=== PATIENT | female | born 1950 | race Caucasian/White ===

== ENCOUNTER 2023-08-22 18:00 | Inpatient (IN) | payer OTHER ==
[2023-08-22] MEDS ORDERED: tiZANidine HCl 4 MG TAB PO PRN (20:50)
[2023-08-22] MEDS ORDERED: Nitroglycerin 0.4 MG TAB (25 Tab Bottle) SL PRN (20:50)
[2023-08-22] MEDS ORDERED: traMADol HCl 50 MG TAB PO PRN (20:50)
[2023-08-22] MEDS: Metoprolol Tartrate 25 MG TAB PO SCH (21:24)
[2023-08-22] MEDS: guaiFENesin ER 600 MG TAB PO PRN (21:25)
[2023-08-22] MEDS ORDERED: PARoxetine 20 MG TAB PO SCH (21:30)
[2023-08-22 22:19] VITALS: BMI 27.2
[2023-08-23 05:05] LABS: #Eosinphils 0.1 thou/uL (0.0-0.7); #Monocytes 0.7 thou/uL (0.11-0.59); #Neutrophils 5.6 thou/uL (1.40-6.50); %Basophils 0.5 % (0.0-1.0); %Eosinophils 1.7 % (0.0-10.0); %Lymphocytes 23.3 % (21.0-51.0); %Monocytes 7.8 % (0.0-10.0); %Neutrophils 66.7 % (42.0-75.0); Hematocrit 40.9 % (36.0-47.0); Mean Corpuscular HGB CONC 34.2 g/dL (32.0-36.0); Mean Corpuscular Hemoglobin 33.4 pg (27.0-31.0); Mean Corpuscular Volume 97.6 fl (78.0-98.0); Mean Platelet Volume 6.5 fL (7.4-10.4); Platelet Count 191 10x3/uL (130-400); RBC Distribution Width 10.9 % (11.5-14.5); Red Blood Cell (RBC) Count 4.19 mill/uL (4.20-5.40); White Blood Cell (WBC) Count 8.3 10x3/uL (4.8-10.8)
[2023-08-23 05:28] LABS: Anion Gap 13 mmol/L (10-20); BUN (Urea Nitrogen) 16 mg/dL (9.8-20.1); Calc. Creatinine Clearance 46 mL/min (70-130); Calcium 10.3 mg/dL (7.8-10.44); Carbon Dioxide 23 mmol/L (23-31); Chloride 106 mmol/L (98-107); Estimated GFR 55; Glucose 89 mg/dL (83-110); Potassium 3.6 mmol/L (3.5-5.1); Sodium 138 mmol/L (136-145)
[2023-08-23] MEDS: Isosorbide Mononitrate 30 MG ER.TAB PO SCH (08:35)
[2023-08-23] MEDS: Topiramate 25 MG TAB PO SCH (08:35)
[2023-08-23] MEDS: BuPROPion XL 150 MG ER.TAB PO SCH (08:35)
[2023-08-23] MEDS: Ezetimibe 10 MG TAB PO SCH (08:35)
[2023-08-23] MEDS: Zinc Sulfate 220 MG CAP PO SCH (08:35)
[2023-08-23] MEDS: Ranolazine 500 MG ER.TAB PO SCH (08:35)
[2023-08-23] MEDS: Multivit, Therapeutic 1 TAB PO SCH (08:35)
[2023-08-23] MEDS: Metoprolol Tartrate 25 MG TAB PO SCH ×2 (08:36→20:47)
[2023-08-23] MEDS: Aspirin 81 mg Enteric Coated Tablet PO SCH (08:37)
[2023-08-23] MEDS: Acetaminophen 325 MG TAB PO PRN ×2 (09:16→20:50)
[2023-08-23 13:56] LABS: Free T4 (Free Thyroxine) 1.09 ng/dL (0.70-1.48)
[2023-08-23] MEDS: PARoxetine 20 MG TAB PO SCH (20:49)
[2023-08-24] MEDS: Ranolazine 500 MG ER.TAB PO SCH (09:54)
[2023-08-24] MEDS: Metoprolol Tartrate 25 MG TAB PO SCH ×2 (09:54→21:06)
[2023-08-24] MEDS: Ezetimibe 10 MG TAB PO SCH (09:54)
[2023-08-24] MEDS: Topiramate 25 MG TAB PO SCH (09:54)
[2023-08-24] MEDS: guaiFENesin ER 600 MG TAB PO PRN (09:54)
[2023-08-24] MEDS: Multivit, Therapeutic 1 TAB PO SCH (09:54)
[2023-08-24] MEDS: Isosorbide Mononitrate 30 MG ER.TAB PO SCH (09:54)
[2023-08-24] MEDS: Zinc Sulfate 220 MG CAP PO SCH (09:54)
[2023-08-24] MEDS: Aspirin 81 mg Enteric Coated Tablet PO SCH (09:55)
[2023-08-24] MEDS: BuPROPion XL 150 MG ER.TAB PO SCH (09:56)
[2023-08-24] MEDS: PARoxetine 20 MG TAB PO SCH (21:06)
[2023-08-25] MEDS: Ranolazine 500 MG ER.TAB PO SCH (09:51)
[2023-08-25] MEDS: Multivit, Therapeutic 1 TAB PO SCH (09:52)
[2023-08-25] MEDS: Metoprolol Tartrate 25 MG TAB PO SCH ×2 (09:52→20:42)
[2023-08-25] MEDS: BuPROPion XL 150 MG ER.TAB PO SCH (09:52)
[2023-08-25] MEDS: Zinc Sulfate 220 MG CAP PO SCH (09:52)
[2023-08-25] MEDS: Ezetimibe 10 MG TAB PO SCH (09:52)
[2023-08-25] MEDS: Topiramate 25 MG TAB PO SCH (09:52)
[2023-08-25] MEDS: Aspirin 81 mg Enteric Coated Tablet PO SCH (09:52)
[2023-08-25] MEDS: Isosorbide Mononitrate 30 MG ER.TAB PO SCH (09:52)
[2023-08-25] MEDS: PARoxetine 20 MG TAB PO SCH (20:42)
[2023-08-26] MEDS: Aspirin 81 mg Enteric Coated Tablet PO SCH (09:00)
[2023-08-26] MEDS: BuPROPion XL 150 MG ER.TAB PO SCH (09:00)
[2023-08-26] MEDS: Metoprolol Tartrate 25 MG TAB PO SCH ×2 (09:00→20:35)
[2023-08-26] MEDS: Ranolazine 500 MG ER.TAB PO SCH (09:00)
[2023-08-26] MEDS: Topiramate 25 MG TAB PO SCH (09:00)
[2023-08-26] MEDS: Ezetimibe 10 MG TAB PO SCH (09:00)
[2023-08-26] MEDS: Multivit, Therapeutic 1 TAB PO SCH (09:00)
[2023-08-26] MEDS: Zinc Sulfate 220 MG CAP PO SCH (09:00)
[2023-08-26] MEDS: Isosorbide Mononitrate 30 MG ER.TAB PO SCH (09:00)
[2023-08-26] MEDS: PARoxetine 20 MG TAB PO SCH (20:34)
[2023-08-27 06:16] VITALS: BP 169/77; TEMP 97.2
[2023-08-27] MEDS: BuPROPion XL 150 MG ER.TAB PO SCH (08:42)
[2023-08-27] MEDS: Ranolazine 500 MG ER.TAB PO SCH (08:42)
[2023-08-27] MEDS: Zinc Sulfate 220 MG CAP PO SCH (08:42)
[2023-08-27] MEDS: Aspirin 81 mg Enteric Coated Tablet PO SCH (08:43)
[2023-08-27] MEDS: Multivit, Therapeutic 1 TAB PO SCH (08:43)
[2023-08-27] MEDS: Metoprolol Tartrate 25 MG TAB PO SCH (08:43)
[2023-08-27] MEDS: Topiramate 25 MG TAB PO SCH (08:44)
[2023-08-27] MEDS: Ezetimibe 10 MG TAB PO SCH (08:44)
[2023-08-27] MEDS: Isosorbide Mononitrate 30 MG ER.TAB PO SCH (08:44)
== END 2023-08-27 14:00 | disposition home or self-care (01) | DRG 179 ==
LOC: BURMED 18:00
PROVIDERS: ADMIT Family Medicine; ATTEND Family Medicine
DX: U07.1 COVID-19 (principal); F03.90 Unspecified dementia, unspecified severity, without behavioral disturbance, psychotic disturbance, mood disturbance, and anxiety; I25.10 Atherosclerotic heart disease of native coronary artery without angina pectoris; I10 Essential (primary) hypertension; E03.9 Hypothyroidism, unspecified; F32.A Depression, unspecified; F41.9 Anxiety disorder, unspecified; E78.5 Hyperlipidemia, unspecified; K21.9 Gastro-esophageal reflux disease without esophagitis; Z88.5 Allergy status to narcotic agent; Z88.8 Allergy status to other drugs, medicaments and biological substances; Z88.0 Allergy status to penicillin; Z88.2 Allergy status to sulfonamides; I25.2 Old myocardial infarction; Z95.5 Presence of coronary angioplasty implant and graft; Z95.1 Presence of aortocoronary bypass graft; Z90.49 Acquired absence of other specified parts of digestive tract; Z90.710 Acquired absence of both cervix and uterus; Z98.890 Other specified postprocedural states
CPT/HCPCS: 36415; 80048; 84439; 84443; 84481; 85025